=== PATIENT | female | born 1960 | race Caucasian/White ===

== ENCOUNTER 2019-01-04 07:36 | Emergency (ER) | payer BC ==
[2019-01-04] MEDS ORDERED: NITROGLYCERIN OINT 1 INCH/GM PACKET TOPICAL STA (07:56)
[2019-01-04] MEDS ORDERED: ASPIRIN 81 MG PO STA (07:56)
--- NOTE | 2019-01-04 08:05 | ED ---
General Adult HPI - General Chief complaint: Chest Pain Stated complaint: Chest pain Time Seen by Provider: 01/04/19 07:48 Source: patient, RN notes reviewed Mode of arrival: wheelchair Limitations: no limitations - History of Present Illness Initial comments: Patient is a pleasant 58-year-old female presenting to the emergency Department with complaints of chest discomfort. Onset of symptoms was last night. Discomfort has been waxing and waning and is currently 2/10. There is been some radiation towards left arm. Patient has had some mild associated dyspnea and nausea. No diaphoresis. Discomfort feels like pressure. No history of similar symptoms previously. Patient has been under increased stress recently. - Related Data Home Medications Medication Instructions Recorded Confirmed L.acidoph,Paracasei, B.lactis 1 cap PO DAILY 01/04/19 01/04/19 [Probiotic] Multivitamins, Thera [Multivitamin 1 tab PO DAILY 01/04/19 01/04/19 (formulary)] Mylanta 20 ml PO Q4H PRN 01/04/19 01/04/19 Naproxen Sodium [Aleve] 440 mg PO BID PRN 01/04/19 01/04/19 Xanax (Unknown Dose) 1 tab PO ONCE 01/04/19 01/04/19 Allergies Allergy/AdvReac Type Severity Reaction Status Date / Time meperidine [From Demerol] Allergy Anaphylaxis Verified 01/04/19 07:56 morphine Allergy Anaphylaxis Verified 01/04/19 07:56 shellfish derived [Shellfish] Allergy Anaphylaxis Verified 01/04/19 07:56 aspirin AdvReac DROPS Verified 01/04/19 07:56 BLOOD SUGAR Review of Systems ROS Statement: Those systems with pertinent positive or pertinent negative responses have been documented in the HPI. ROS Other: All systems not noted in ROS Statement are negative. Constitutional: Denies: fever Eyes: Denies: eye pain ENT: Denies: ear pain Respiratory: Denies: cough Cardiovascular: Reports: chest pain Endocrine: Denies: fatigue Gastrointestinal: Denies: abdominal pain Genitourinary: Denies: dysuria Musculoskeletal: Denies: back pain Skin: Denies: rash Neurological: Denies: weakness Past Medical History Past Medical History: No Reported History History of Any Multi-Drug Resistant Organisms: None Reported Past Surgical History: Section Additional Past Surgical History / Comment(s): biopsy for breast CA (benign.) Past Psychological History: No Psychological Hx Reported Smoking Status: Current every day smoker Past Alcohol Use History: None Reported Past Drug Use History: None Reported General Exam Limitations: no limitations General appearance: alert, in no apparent distress Head exam: Present: normocephalic Eye exam: Present: normal appearance, PERRL ENT exam: Present: normal oropharynx Neck exam: Present: normal inspection Respiratory exam: Present: normal lung sounds bilaterally. Absent: chest wall tenderness Cardiovascular Exam: Present: regular rate, normal rhythm, normal heart sounds Expanded Peripheral pulses: 2+: Radial (R), Radial (L), Dorsalis Pedis (R), Dorsalis Pedis (L) GI/Abdominal exam: Present: soft. Absent: tenderness Extremities exam: Present: normal inspection. Absent: pedal edema, calf tenderness Neurological exam: Present: alert Psychiatric exam: Present: normal affect, normal mood Skin exam: Present: normal color Course Vital Signs 01/04/19 01/04/19 01/04/19 07:40 08:30 09:00 Temperature 98.1 F Pulse Rate 81 86 75 Respiratory 18 16 18 Rate Blood Pressure 146/95 137/88 130/87 O2 Sat by Pulse 100 92 L 95 Oximetry - Reevaluation(s) Reevaluation #1: 01/04/19 09:45 Patient states aspirin causes her blood sugar to lower. 01/04/19 10:17 Patient reevaluated and updated. Long discussion had with patient regarding results and recommendation for admission. Patient does them straight medical decision making. Patient is made aware that heart attack and risk for heart attack in the near future has not been ruled out. Patient is agreeable to have computed tomography scan prior to leaving. Patient is aware if she leaves it will be AGAINST MEDICAL ADVICE. EKG Findings - EKG Comments: EKG Findings:: Normal sinus rhythm 92. VT 160. QRS 70. QT 364. QTC 450. Normal axis. Normal QRS. No acute ST change. Medical Decision Making - Medical Decision Making Patient again reevaluated and still resting comfortably in bed, symptom-free. Patient updated on results. Patient still refuses to stay and will leave AGAINST MEDICAL ADVICE. - Lab Data Result diagrams: 01/04/19 08:14 01/04/19 08:14 Lab Results 01/04/19 01/04/19 01/04/19 Range/Units 08:14 08:14 08:14 WBC 12.6 H (3.8-10.6) k/uL RBC 5.32 (3.80-5.40) m/uL Hgb 16.7 H (11.4-16.0) gm/dL Hct 47.7 H (34.0-46.0) % MCV 89.6 (80.0-100.0) fL MCH 31.3 (25.0-35.0) pg MCHC 34.9 (31.0-37.0) g/dL RDW 13.1 (11.5-15.5) % Plt Count 330 (150-450) k/uL Neutrophils % 82 % Lymphocytes % 11 % Monocytes % 4 % Eosinophils % 1 % Basophils % 1 % Neutrophils # 10.3 H (1.3-7.7) k/uL Lymphocytes # 1.4 (1.0-4.8) k/uL Monocytes # 0.5 (0-1.0) k/uL Eosinophils # 0.1 (0-0.7) k/uL Basophils # 0.1 (0-0.2) k/uL PT 10.1 (9.0-12.0) sec INR 0.9 (<1.2) APTT 25.9 (22.0-30.0) sec D-Dimer 0.68 H (<0.60) mg/L FEU Sodium 141 (137-145) mmol/L Potassium 4.2 (3.5-5.1) mmol/L Chloride 107 (98-107) mmol/L Carbon Dioxide 23 (22-30) mmol/L Anion Gap 11 mmol/L BUN 16 (7-17) mg/dL Creatinine 0.76 (0.52-1.04) mg/dL Est GFR (CKD-EPI)AfAm >90 (>60 ml/min/1.73 sqM) Est GFR (CKD-EPI)NonAf 88 (>60 ml/min/1.73 sqM) Glucose 114 H (74-99) mg/dL POC Glucose (mg/dL) (75-99) mg/dL POC Glu Security Trainer ID Calcium 9.9 (8.4-10.2) mg/dL Magnesium 1.9 (1.6-2.3) mg/dL Total Bilirubin 0.6 (0.2-1.3) mg/dL AST 37 H (14-36) U/L ALT 41 (9-52) U/L Alkaline Phosphatase 101 (38-126) U/L Troponin I (0.000-0.034) ng/mL NT-Pro-B Natriuret Pep pg/mL Total Protein 7.5 (6.3-8.2) g/dL Albumin 4.5 (3.5-5.0) g/dL Amylase 50 (30-110) U/L Lipase 61 (23-300) U/L 01/04/19 01/04/19 01/04/19 Range/Units 08:14 08:14 08:20 WBC (3.8-10.6) k/uL RBC (3.80-5.40) m/uL Hgb (11.4-16.0) gm/dL Hct (34.0-46.0) % MCV (80.0-100.0) fL MCH (25.0-35.0) pg MCHC (31.0-37.0) g/dL RDW (11.5-15.5) % Plt Count (150-450) k/uL Neutrophils % % Lymphocytes % % Monocytes % % Eosinophils % % Basophils % % Neutrophils # (1.3-7.7) k/uL Lymphocytes # (1.0-4.8) k/uL Monocytes # (0-1.0) k/uL Eosinophils # (0-0.7) k/uL Basophils # (0-0.2) k/uL PT (9.0-12.0) sec INR (<1.2) APTT (22.0-30.0) sec D-Dimer (<0.60) mg/L FEU Sodium (137-145) mmol/L Potassium (3.5-5.1) mmol/L Chloride (98-107) mmol/L Carbon Dioxide (22-30) mmol/L Anion Gap mmol/L BUN (7-17) mg/dL Creatinine (0.52-1.04) mg/dL Est GFR (CKD-EPI)AfAm (>60 ml/min/1.73 sqM) Est GFR (CKD-EPI)NonAf (>60 ml/min/1.73 sqM) Glucose (74-99) mg/dL POC Glucose (mg/dL) 129 H (75-99) mg/dL POC Glu Security Trainer ID Teresa Luciano Calcium (8.4-10.2) mg/dL Magnesium (1.6-2.3) mg/dL Total Bilirubin (0.2-1.3) mg/dL AST (14-36) U/L ALT (9-52) U/L Alkaline Phosphatase (38-126) U/L Troponin I <0.012 (0.000-0.034) ng/mL NT-Pro-B Natriuret Pep 45 pg/mL Total Protein (6.3-8.2) g/dL Albumin (3.5-5.0) g/dL Amylase (30-110) U/L Lipase (23-300) U/L 01/04/19 Range/Units 10:21 WBC (3.8-10.6) k/uL RBC (3.80-5.40) m/uL Hgb (11.4-16.0) gm/dL Hct (34.0-46.0) % MCV (80.0-100.0) fL MCH (25.0-35.0) pg MCHC (31.0-37.0) g/dL RDW (11.5-15.5) % Plt Count (150-450) k/uL Neutrophils % % Lymphocytes % % Monocytes % % Eosinophils % % Basophils % % Neutrophils # (1.3-7.7) k/uL Lymphocytes # (1.0-4.8) k/uL Monocytes # (0-1.0) k/uL Eosinophils # (0-0.7) k/uL Basophils # (0-0.2) k/uL PT (9.0-12.0) sec INR (<1.2) APTT (22.0-30.0) sec D-Dimer (<0.60) mg/L FEU Sodium (137-145) mmol/L Potassium (3.5-5.1) mmol/L Chloride (98-107) mmol/L Carbon Dioxide (22-30) mmol/L Anion Gap mmol/L BUN (7-17) mg/dL Creatinine (0.52-1.04) mg/dL Est GFR (CKD-EPI)AfAm (>60 ml/min/1.73 sqM) Est GFR (CKD-EPI)NonAf (>60 ml/min/1.73 sqM) Glucose (74-99) mg/dL POC Glucose (mg/dL) 117 H (75-99) mg/dL POC Glu Security Trainer ID Teresa Luciano Calcium (8.4-10.2) mg/dL Magnesium (1.6-2.3) mg/dL Total Bilirubin (0.2-1.3) mg/dL AST (14-36) U/L ALT (9-52) U/L Alkaline Phosphatase (38-126) U/L Troponin I (0.000-0.034) ng/mL NT-Pro-B Natriuret Pep pg/mL Total Protein (6.3-8.2) g/dL Albumin (3.5-5.0) g/dL Amylase (30-110) U/L Lipase (23-300) U/L - Radiology Data Radiology results: report reviewed (CT chest negative for pulmonary embolism), image reviewed (Chest x-ray shows minimal atelectasis) Disposition Clinical Impression: Chest pain Disposition: Left Against Medical Advice Instructions (If sedation given, give patient instructions): Chest Pain (ED) Additional Instructions: Please follow-up with primary care physician tomorrow. Aspirin daily. Return for chest pain, difficulty breathing, worsening symptoms or any other concerns. You are leaving AGAINST MEDICAL ADVICE. Is patient prescribed a controlled substance at d/c from ED?: No Referrals: Amber Rust MD [Primary Care Provider] - 1-2 days Time of Disposition: 11:44
[2019-01-04 08:21] LABS: Glucose,Whole Blood 129 mg/dL (75-99)
--- NOTE | 2019-01-04 08:44 | XR ---
EXAMINATION TYPE: XR chest 2V DATE OF EXAM: 01/04/2019 COMPARISON: None INDICATION: Chest pain TECHNIQUE: Frontal and lateral views of the chest are obtained. FINDINGS: The heart size is normal. The pulmonary vasculature is normal. Some minimal plate atelectasis is at the left costophrenic angle.. IMPRESSION: 1. Minimal plate atelectasis left costophrenic angle.
[2019-01-04 09:34] LABS: Basophils # (A) 0.1 k/uL (0-0.2); Basophils % (A) 1 %; Eosinophils # (A) 0.1 k/uL (0-0.7); Eosinophils % (A) 1 %; HCT 47.7 % (34.0-46.0); HGB 16.7 gm/dL (11.4-16.0); Lymphocytes # (A) 1.4 k/uL (1.0-4.8); Lymphocytes % (A) 11 %; MCH 31.3 pg (25.0-35.0); MCHC 34.9 g/dL (31.0-37.0); MCV 89.6 fL (80.0-100.0); Mean Platelet Volume 8.2; Monocytes # (A) 0.5 k/uL (0-1.0); Monocytes % (A) 4 %; Neutrophils # (A) 10.3 k/uL (1.3-7.7); Neutrophils % (A) 82 %; Platelet Count 330 k/uL (150-450); RBC 5.32 m/uL (3.80-5.40); RDW 13.1 % (11.5-15.5); WBC 12.6 k/uL (3.8-10.6)
[2019-01-04 09:42] LABS: ALT 41 U/L (9-52); AST 37 U/L (14-36); African American GFR (CKD) >90 (>60 ml/min/1.73 sqM); Albumin 4.5 g/dL (3.5-5.0); Alkaline Phosphatase 101 U/L (38-126); Amylase 50 U/L (30-110); Anion Gap 11 mmol/L; Blood Urea Nitrogen 16 mg/dL (7-17); Calcium 9.9 mg/dL (8.4-10.2); Carbon Dioxide 23 mmol/L (22-30); Chloride 107 mmol/L (98-107); Glucose 114 mg/dL (74-99); Magnesium 1.9 mg/dL (1.6-2.3); Potassium 4.2 mmol/L (3.5-5.1); Sodium 141 mmol/L (137-145); Total Bilirubin 0.6 mg/dL (0.2-1.3); Total Protein 7.5 g/dL (6.3-8.2)
[2019-01-04 09:48] LABS: INR 0.9 (<1.2); Partial Thromboplastin Time 25.9 sec (22.0-30.0); Prothrombin Time 10.1 sec (9.0-12.0)
[2019-01-04 09:56] LABS: D-Dimer 0.68 mg/L FEU (<0.60)
[2019-01-04] MEDS ORDERED: FAMOTIDINE 20 MG/2 ML VIAL IV STA (10:17)
[2019-01-04] MEDS ORDERED: methylPREDNISolone SOD SUCCI 125 MG/2 ML VIAL IV STA (10:17)
[2019-01-04] MEDS ORDERED: diphenhydrAMINE 50 MG/ML 1 ML VIAL IVP STA (10:17)
[2019-01-04 10:24] LABS: Glucose,Whole Blood 117 mg/dL (75-99)
--- NOTE | 2019-01-04 11:02 | CT ---
EXAMINATION TYPE: CT angio chest DATE OF EXAM: 01/04/2019 COMPARISON: none HISTORY: elevated d dimer, chest pain CT DLP: 520.7 mGycm CONTRAST: CT chest with contrast and 3D reconstruction with MIP imaging is performed with IV Contrast, patient injected with 73 mL of Isovue 370. Contrast-enhanced CT of the chest was performed through the course of the pulmonary arteries with nick g and mediastinal window settings submitted. 3D reconstruction with MIP imaging was also performed. PULMONARY ARTERIES: The pulmonary arteries and their major tributaries are patent. I do not see jasmyne dence for sizable filling defect to suggest pulmonary embolic process. LUNGS: The lungs are clear and free of infiltrate. No evidence for atelectasis. No pulmonary nodule or mass is detected. No pleural effusion. MEDIASTINUM: Thoracic aorta is of normal caliber,however, evaluation is limited given timing of the contrast bolus. If there is concern for thoracic aortic pathology consider RAUL. Correlate clinicall y . The heart is not enlarged. No evidence for mediastinal mass. No mediastinal lymph nodes greater than 1cm. HILAR STRUCTURES: No evidence for mass. No hilar lymph nodes greater than 1 cm. UPPER ABDOMEN: No significant abnormality is seen. IMPRESSION: 1. No evidence for Pulmonary embolism at this time.
[2019-01-04] MEDS ORDERED: NICOTINE 21MG/24HR PATCH TRANSDERM STA (11:46)
[2019-01-04] MEDS ORDERED: ALPRAZolam 0.5 MG TAB PO PRN (11:46)
[2019-01-04] MEDS ORDERED: ONDANSETRON 4 MG/2 ML VIAL IVP PRN (11:48)
[2019-01-04 11:57] VITALS: BP 130/81; PULSE 72; RESP 16; TEMP 98.2
[2019-01-04] MEDS ORDERED: ALPRAZolam 1 MG TAB PO STA (12:00)
[2019-01-04] MEDS ORDERED: ONDANSETRON 4 MG ODT STARTER PACK 2 TAB BTL PO STA (12:00)
[2019-01-04] MEDS ORDERED: HEPARIN SODIUM,PORCINE 5,000 UNIT/ML 1 ML VIAL SQ SCH (21:00)
[2019-01-04] MEDS ORDERED: FAMOTIDINE 20 MG/2 ML VIAL IV SCH (21:00)
--- NOTE | 2019-01-04 21:06 | P.HPIM ---
Review of Systems CONSTITUTIONAL: No fever, no malaise, no fatigue. HEENT: No recent visual problems or hearing problems. Denied any sore throat. CARDIOVASCULAR: No orthopnea, PND, no palpitations, no syncope. PULMONARY: , no hemoptysis. GASTROINTESTINAL: no abdominal pain. Normoactive bowel sounds. NEUROLOGICAL: No headaches, no weakness, no numbness. HEMATOLOGICAL: Denies any bleeding or petechiae. GENITOURINARY: Denies any burning micturition, frequency, or urgency. MUSCULOSKELETAL/RHEUMATOLOGICAL: Denies any joint pain, swelling, or any muscle pain. ENDOCRINE: Denies any polyuria or polydipsia. Past Medical History Past Medical History: No Reported History History of Any Multi-Drug Resistant Organisms: None Reported Past Surgical History: Section Additional Past Surgical History / Comment(s): biopsy for breast CA (benign.) Past Psychological History: No Psychological Hx Reported Smoking Status: Current every day smoker Past Alcohol Use History: None Reported Past Drug Use History: None Reported Medications and Allergies Home Medications Medication Instructions Recorded Confirmed Type L.acidoph,Paracasei, B.lactis 1 cap PO DAILY 01/04/19 01/04/19 History [Probiotic] Multivitamins, Thera [Multivitamin 1 tab PO DAILY 01/04/19 01/04/19 History (formulary)] Mylanta 20 ml PO Q4H PRN 01/04/19 01/04/19 History Naproxen Sodium [Aleve] 440 mg PO BID PRN 01/04/19 01/04/19 History Xanax (Unknown Dose) 1 tab PO ONCE 01/04/19 01/04/19 History Allergies Allergy/AdvReac Type Severity Reaction Status Date / Time meperidine [From Demerol] Allergy Anaphylaxis Verified 01/04/19 07:56 morphine Allergy Anaphylaxis Verified 01/04/19 07:56 shellfish derived [Shellfish] Allergy Anaphylaxis Verified 01/04/19 07:56 aspirin AdvReac DROPS Verified 01/04/19 07:56 BLOOD SUGAR Physical Exam Vitals: Vital Signs Temp Pulse Resp BP Pulse Ox 01/04/19 09:00 75 18 130/87 95 01/04/19 08:30 86 16 137/88 92 L 01/04/19 07:40 98.1 F 81 18 146/95 100 Intake and Output 01/03/19 01/04/19 01/04/19 22:59 06:59 14:59 Other: Weight 83.915 kg GENERAL: The patient is alert and oriented x3, not in any acute distress. Well developed, well nourished. HEENT: Pupils are round and equally reacting to light. EOMI. No scleral icterus. No conjunctival pallor. Normocephalic, atraumatic. No pharyngeal erythema. No thyromegaly. CARDIOVASCULAR: S1 and S2 present. No murmurs, rubs, or gallops. PULMONARY: Chest is clear to auscultation, no wheezing or crackles. ABDOMEN: Soft, nontender, nondistended, normoactive bowel sounds. No palpable organomegaly. MUSCULOSKELETAL: No joint swelling or deformity. EXTREMITIES: No cyanosis, clubbing, or pedal edema. NEUROLOGICAL: Gross neurological examination did not reveal any focal deficits. SKIN: No rashes. No petechiae Results CBC & Chem 7: 01/04/19 08:14 01/04/19 08:14 Labs: Abnormal Lab Results - Last 24 Hours (Table) 01/04/19 01/04/19 01/04/19 Range/Units 08:14 08:14 08:14 WBC 12.6 H (3.8-10.6) k/uL Hgb 16.7 H (11.4-16.0) gm/dL Hct 47.7 H (34.0-46.0) % Neutrophils # 10.3 H (1.3-7.7) k/uL D-Dimer 0.68 H (<0.60) mg/L FEU Glucose 114 H (74-99) mg/dL POC Glucose (mg/dL) (75-99) mg/dL AST 37 H (14-36) U/L 01/04/19 01/04/19 Range/Units 08:20 10:21 WBC (3.8-10.6) k/uL Hgb (11.4-16.0) gm/dL Hct (34.0-46.0) % Neutrophils # (1.3-7.7) k/uL D-Dimer (<0.60) mg/L FEU Glucose (74-99) mg/dL POC Glucose (mg/dL) 129 H 117 H (75-99) mg/dL AST (14-36) U/L Assessment and Plan Assessment: chest pain, rule out cardiac causes Mild leukocytosis, mostly reactive Mild gastroenteritis with mild dehydration Anxiety due to family stresses Nicotine dependence Elevated d-dimer, with negative CTPA for pulmonary embolism Plan: This is a pleasant 58 years old female with no significant past medical history. Patient presents because of chest pain. Patient reports stress in the family related to her son who is going through difficulties in his life and career, yesterday she started having chest pain, central radiating to the left arm at times, about 8/10 in severity that comes and go, currently is 0/10, associated with some nausea and vomiting, she vomited 4 times with no blood in it, also she has loose bowel movement once daily yesterday, with no abdominal pain, associated with some palpitation and dyspnea which all seems improving and patient was sitting in bed,, also patient has recent history of coughing with phlegm which looks also improving. She thinks that most of her symptoms related to her stress Patient had stress test was negative on 08/2018, as part of her physical exam and she works in the fire department. She smokes about 1 pack per day, no alcohol or illicit drugs Vitas looks stable, labs including CBC,, BMP, liver enzymes and INR were unremarkable except for mildly elevated WBC at 12.6 K. D-dimer is elevated at 0.68. CTA of the chest was done showing no evidence of pulmonary embolism, lungs are clear. Chest x-ray atelectasis. EKG showing normal sinus rhythm at [address]-T changes In the emergency room patient received aspirin and Pepcid with steroids.
--- NOTE | 2019-01-04 21:09 | P.DS ---
Providers Primary care physician: Amber Rust Hospital Course: please note this is not a true discharge summary because pt was not discharge but signed leaving AMA Dx: chest pain, rule out cardiac causes Mild leukocytosis, mostly reactive Mild gastroenteritis with mild dehydration Anxiety due to family stresses Nicotine dependence Elevated d-dimer, with negative CTPA for pulmonary embolism Hospital course pt is admitted for chest pain and related to anxiety and family stress. her chest pain subsided . however pt opted to sign leaving AMA, Risks including but not limited to heart attack, and/or are explained for the pt , she verbalized understanding but she refused to stay. please refer to H&P from today for more details Plan - Discharge Summary New Discharge Prescriptions: No Action Multivitamins, Thera [Multivitamin (formulary)] 1 tab PO DAILY L.acidoph,Paracasei, B.lactis [Probiotic] 1 cap PO DAILY Naproxen Sodium [Aleve] 440 mg PO BID PRN PRN Reason: Pain Xanax (Unknown Dose) 1 tab PO ONCE Mylanta 20 ml PO Q4H PRN PRN Reason: Gi Upset Discharge Medication List L.acidoph,Paracasei, B.lactis [Probiotic] 1 cap PO DAILY 01/04/19 [History] Multivitamins, Thera [Multivitamin (formulary)] 1 tab PO DAILY 01/04/19 [History] Mylanta 20 ml PO Q4H PRN 01/04/19 [History] Naproxen Sodium [Aleve] 440 mg PO BID PRN 01/04/19 [History] Xanax (Unknown Dose) 1 tab PO ONCE 01/04/19 [History] Follow up Appointment(s)/Referral(s): Amber Rust MD [Primary Care Provider] - 1-2 days Patient Instructions/Handouts: Chest Pain (ED) Activity/Diet/Wound Care/Special Instructions: Please follow-up with primary care physician tomorrow. Aspirin daily. Return for chest pain, difficulty breathing, worsening symptoms or any other concerns. You are leaving AGAINST MEDICAL ADVICE. Discharge Disposition: Left Against Medical Advice
[2019-01-05] MEDS ORDERED: ASPIRIN 81 MG PO SCH (09:00)
== END 2019-01-04 12:06 | disposition left against medical advice (07) ==
LOC: EC 07:36
DX: R07.89 Other chest pain (principal); R06.00 Dyspnea, unspecified; R11.0 Nausea; F17.200 Nicotine dependence, unspecified, uncomplicated; Z85.3 Personal history of malignant neoplasm of breast; Z79.899 Other long term (current) drug therapy; Z88.5 Allergy status to narcotic agent; Z91.013 Allergy to seafood; Z88.6 Allergy status to analgesic agent; Z53.29 Procedure and treatment not carried out because of patient's decision for other reasons
CPT/HCPCS: 36415; 93005; 85379; 83880; 80053; 82150; 83690; 83735; 84484; 85025; 85610; 85730; 71046; 71275; 99285; 96374; 96375 ×2; J2930; S0119; Q9967